=== PATIENT | male | born 1995 | race African-American/Black ===

== ENCOUNTER 2024-02-03 00:34 | Emergency (ER) | payer OTHER ==
[~2024-02-03] VITALS: Ht 182.9 cm; Wt 73.0 kg
[2024-02-03 01:13] VITALS: TEMP 98.3; O2SAT 98
[2024-02-03] MEDS: KETOROLAC 15MG/ML VIAL IM ONE (02:34)
[2024-02-03] MEDS: HYDROCODONE/ACETAMINOPHEN 5/325MG TABLET PO ONE (03:24)
[2024-02-03] MEDS ORDERED: PENI500T MT (03:34)
[2024-02-03] MEDS ORDERED: HYDR-4001 MT (03:34)
[2024-02-03 03:48] VITALS: BP 146/83; PULSE 65; RESP 16
== END 2024-02-03 03:49 | disposition home or self-care (01) ==
LOC: ER 00:34
DX: K04.7 Periapical abscess without sinus (principal)
CPT/HCPCS: 99283; 96372; J1885